=== PATIENT | male | born 1995 | race Caucasian/White ===

== ENCOUNTER 2017-07-27 10:41 | Emergency (ER) | payer SELFPAY ==
[2017-07-27 13:00] LABS: Anion Gap 11 mmol/L (10-20); BUN (Urea Nitrogen) 11 mg/dL (8.9-20.6); Calc. Creatinine Clearance 0 mL/min (70-130); Calcium 9.1 mg/dL (7.8-10.44); Carbon Dioxide 22 mmol/L (22-29); Chloride 108 mmol/L (98-107); Estimated GFR-MDRD Greater than 90; Glucose 93 mg/dL (70-105); Potassium 5.1 mmol/L (3.5-5.1); Sodium 136 mmol/L (136-145)
--- NOTE | 2017-07-27 13:50 | CT ---
CT ABDOMEN AND PELVIS WITH CONTRAST: Date: 07/27/17 Multiple axial tomograms obtained through the abdomen and pelvis with IV enhancement. INDICATION: Right lower quadrant pain. FINDINGS: Lung bases clear. Liver, spleen, and pancreas unremarkable. Adrenal glands and kidneys unremarkable. No hydronephrosis or urinary calculus identified. Small bowel loops appear normal. Appendix is identified and appears unremarkable. There is a large amount of stool seen in the right c olon and transverse colon. Left colon is mostly contracted. Aorta and retroperitoneum unremarkable. N o adenopathy apparent. IMPRESSION: No evidence of acute process. POS: [facility]
[2017-07-27] MEDS ORDERED: ISOVUE-370 76%-LOCM 1 ML ONE (14:54)
== END 2017-07-27 13:02 | disposition home or self-care (01) ==
LOC: ERS 10:41
DX: R10.31 Right lower quadrant pain (principal)
CPT/HCPCS: 36415; 74177; 80048

== ENCOUNTER 2018-06-22 17:48 | Inpatient (IN) | payer BC, SELFPAY ==
[2018-06-22 18:20] LABS: #Eosinphils 0.2 thou/uL (0.0-0.7); #Monocytes 0.5 thou/uL (0.11-0.59); #Neutrophils 2.1 thou/uL (1.40-6.50); %Basophils 0.5 % (0.0-1.0); %Eosinophils 4.5 % (0.0-10.0); %Lymphocytes 25.6 % (21.0-51.0); %Monocytes 13.1 % (0.0-10.0); %Neutrophils 56.4 % (42.0-75.0); Hemoglobin 16.9 g/dL (14.0-18.0); Mean Corpuscular HGB CONC 31.7 g/dL (32.0-36.0); Mean Platelet Volume 9.3 fL (7.4-10.4); Platelet Count 166 thou/uL (130-400); RBC Distribution Width 12.6 % (11.5-14.5); Red Blood Cell (RBC) Count 5.28 mill/uL (4.70-6.10); White Blood Cell (WBC) Count 3.8 thou/uL (4.8-10.8)
[2018-06-22 18:40] LABS: ALT (SGPT) 2428 U/L (8-55); AST (SGOT) 1701 U/L (5-34); Albumin 4.3 g/dL (3.5-5.0); Alkaline Phosphatase 227 U/L (40-150); Anion Gap 17 mmol/L (10-20); BUN (Urea Nitrogen) 7 mg/dL (8.9-20.6); Bilirubin, Total 16.8 mg/dL (0.2-1.2); Calc. Creatinine Clearance 0 mL/min (70-130); Carbon Dioxide 25 mmol/L (22-29); Chloride 102 mmol/L (98-107); Estimated GFR-MDRD 76; Globulin 2.8 g/dL (2.4-3.5); Glucose 151 mg/dL (70-105); Lipase 9 U/L (8-78); Potassium 4.5 mmol/L (3.5-5.1); Protein, Total 7.1 g/dL (6.0-8.3); Sodium 139 mmol/L (136-145)
[2018-06-22 18:48] LABS: INR-International Normal Ratio 1.2; PTT 29.7 SEC (22.9-36.1); Prothrombin Time 15.7 SEC (12.0-14.7)
[2018-06-22 19:00] LABS: HBCM Index 0.06 S/CO (0-0.79); Hep A IgM AB Non-Reactive (NonReactive); Hep A IgM S/CO 0.13 S/CO (0-0.79); Hep C IgG Ab Non-Reactive (NonReactive); Hep C Index 0.11 S/CO (0-0.79); Hepatitis B Core IgM Abs Non-Reactive (NonReactive)
--- NOTE | 2018-06-22 19:07 | ULT ---
ULTRASOUND ABDOMEN LIMITED: (RIGHT UPPER QUADRANT) DATE: 06/22/2018 HISTORY: 23-year-old male with right upper quadrant abdominal pain FINDINGS: Gallbladder:Diffuse mural thickening up to 7 mm. No gallstone or sludge identified. No pericholecysti c fluid. Common duct:4 mm. Liver:Echogenicity within normal limits Pancreas:Poorly visualized Right kidney:No hydronephrosis. IMPRESSION: Nonspecific finding of diffuse mural thickening of the gallbladder without abnormal luminal distentio n, and no evidence of cholelithiasis. Consider chronic cholecystitis. Acalculous cholecystitis is unlikely in an otherwise normal young patient. Consider nuclear medicine hepatobiliary scan on an claudia ctive basis.
[2018-06-22 19:37] LABS: Bilirubin Large (Negative); Blood, Urine Negative (Negative); Clarity CLOUDY (Clear); Glucose, Urine (Dipstick) Negative (Negative); Leukocyte Small (Negative); Nitrite Negative (Negative); Protein, Urine (Dipstick) Negative (Neg-Trace); Specific Gravity, Urine 1.016 (1.002-1.036); Urobilinogen 0.2 mg/dL (0.2-1.0); pH, Urine 6.5 (5.0-9.0)
[2018-06-22 19:39] LABS: Hyaline Casts/LPF 0-3 HYALINE CAST LPF (0-3 Hyaline); Pathc Cast-AUWi Flag 0.27 (0-2.49); Squamous Epithelial None Seen HPF (0-3)
[2018-06-22 19:49] LABS: Bacteria/HPF 1+ HPF (None Seen); RBC/HPF None Seen HPF (0-3)
[2018-06-22 19:50] LABS: WBC/HPF 0-3 HPF (0-3); Yeast-All Forms None Seen HPF (None Seen)
[2018-06-22 19:56] LABS: HBSAg Index 1.62 S/CO (0-0.99)
[2018-06-22 19:57] LABS: Hep B Surf Ag Reflx Confirmation S/CO (NonReactive)
[2018-06-22] MEDS ORDERED: Ondansetron PF 4 MG/2 ML Vial ONE (21:50)
[2018-06-22] MEDS ORDERED: Morphine 4 MG/ML VIAL ONE (21:50)
[2018-06-22 22:38] LABS: Acetaminophen Less than 6.0 mcg/mL (10.0-30.0); Alcohol Less than 10 mg/dL (Less than 10); Salicylate Less than 8.0 mg/dL (15.0-30.0)
[2018-06-22 23:36] LABS: HIV (1/2) Antibody/Antigen Non-Reactive (NonReactive); HIV 1/2 INDEX 0.12 S/CO (<1.00)
[2018-06-22 23:45] LABS: Amphetamine Not Detected (NotDetected); Barbiturates Screen Not Detected (NotDetected); Benzodiazepine Screen Not Detected (NotDetected); Cocaine Metabolite Screen Not Detected (NotDetected); Medtox Control Line Valid? VALID (VALID); Medtox Reader # READER 1; Methadone Not Detected (NotDetected); Methamphetamine Not Detected (NotDetected); Opiate Screen Not Detected (NotDetected); Oxycodone Screen Not Detected (NotDetected); Phencyclidine (PCP) Not Detected (NotDetected); THC/Cannabinoid Screen Not Detected (NotDetected); Tricyclic Screen Not Detected (NotDetected)
[2018-06-23 01:54] VITALS: BMI 26.7
[2018-06-23] MEDS: Sodium Chloride 0.9% 1,000 ML IV SCH ×2 (03:19→08:16)
[2018-06-23] MEDS ORDERED: Morphine 4 MG/ML VIAL SLOW IVP SCH (04:00)
[2018-06-23 05:27] LABS: #Eosinphils 0.1 thou/uL (0.0-0.7); #Monocytes 0.5 thou/uL (0.11-0.59); #Neutrophils 1.5 thou/uL (1.40-6.50); %Basophils 0.9 % (0.0-1.0); %Eosinophils 4.6 % (0.0-10.0); %Lymphocytes 32.4 % (21.0-51.0); %Monocytes 14.3 % (0.0-10.0); %Neutrophils 47.8 % (42.0-75.0); Hemoglobin 14.3 g/dL (14.0-18.0); Mean Corpuscular HGB CONC 31.9 g/dL (32.0-36.0); Mean Corpuscular Hemoglobin 31.9 pg (27.0-31.0); Mean Platelet Volume 9.6 fL (7.4-10.4); Platelet Count 141 thou/uL (130-400); RBC Distribution Width 12.7 % (11.5-14.5); Red Blood Cell (RBC) Count 4.49 mill/uL (4.70-6.10); White Blood Cell (WBC) Count 3.2 thou/uL (4.8-10.8)
[2018-06-23 05:46] LABS: ALT (SGPT) 1948 U/L (8-55); AST (SGOT) 1402 U/L (5-34); Albumin 3.5 g/dL (3.5-5.0); Alkaline Phosphatase 182 U/L (40-150); Anion Gap 11 mmol/L (10-20); BUN (Urea Nitrogen) 6 mg/dL (8.9-20.6); Bilirubin, Total 14.3 mg/dL (0.2-1.2); Calc. Creatinine Clearance 175 mL/min (70-130); Calcium 9.2 mg/dL (7.8-10.44); Carbon Dioxide 27 mmol/L (22-29); Chloride 103 mmol/L (98-107); Estimated GFR-MDRD Greater than 90; Globulin 2.3 g/dL (2.4-3.5); Glucose 142 mg/dL (70-105); Potassium 3.7 mmol/L (3.5-5.1); Protein, Total 5.8 g/dL (6.0-8.3); Sodium 137 mmol/L (136-145)
--- NOTE | 2018-06-23 06:26 | HP ---
PRIMARY CARE PHYSICIAN: The patient has no PCP. TIME OF EVALUATION: 10:45 p.m. CODE STATUS: Full code. CHIEF COMPLAINT: Abdominal pain. HISTORY OF PRESENT ILLNESS: This is a 23-year-old male patient with no significant past medical history, came to the hospital after having abdominal pain for the past week, associated with nausea. He was also noted to be jaundiced. The symptoms are mild to moderate. He also reported associated dark urine. He reported having one checkup for STDs on January after his partner was positive for chlamydia. He was tested for some HIV and STDs except for hepatitis. He denies any other risky relationships and no recent sexual relationships. REVIEW OF SYSTEMS: CONSTITUTIONAL: The patient has no fever, chills. He reported some generalized weakness. RESPIRATORY: No cough, sputum production, or shortness of breath. CARDIOVASCULAR: No chest pain or palpitation. GASTROINTESTINAL: The patient has abdominal tenderness and nausea. No diarrhea. ACADEMIC COORDINATOR: No dizziness, headache, or feeling lightheaded. GENITOURINARY: No burning on urination. The patient did report having dark urine. EXTREMITIES: No leg swelling. SKIN: The patient was jaundiced. All other systems were reviewed and negative except for the findings mentioned above. PAST MEDICAL HISTORY: Negative. PAST SURGICAL HISTORY: History of orthopedic surgery to right arm. PSYCHIATRIC HISTORY: No previous psych history. SOCIAL HISTORY: The patient denies any alcohol use, no drug use, no smoking history. Lives at home alone. FAMILY HISTORY: Reviewed and noncontributory for current presentation. ALLERGIES: NO KNOWN DRUG ALLERGIES. REPORTED MEDICATIONS: Omeprazole. PHYSICAL EXAMINATION: VITAL SIGNS: On presentation, blood pressure 116/73 with heart rate 97, respiratory rate was 16, temperature 98. Pain was 6/10. Oxygen saturation was 99% on room air. GENERAL APPEARANCE: The patient is alert and oriented, not in acute distress. HEENT: Eyes, normal conjunctivae. Moist oral mucosa. The patient is jaundiced. NECK: No JVD. RESPIRATORY: Bilateral air entry. No rales. No wheezes. Symmetric expansion. CARDIOVASCULAR: Normal rate, regular rhythm. No murmurs. No gallops. No edema. ABDOMEN: Soft, tender. MUSCULOSKELETAL: Baseline range of motion and strength. No tenderness. SKIN: Warm, intact. No pallor. No rash. No redness. The patient is jaundiced. Peripheral pulses are present. Capillary refill seems to be intact. NEUROLOGIC: No evidence of any new focal weakness. Baseline speech. Cranial nerves seems to be intact. PSYCHIATRIC: The patient is in good mood. No anxiety. Optimal judgment. IMAGING STUDIES: Abdominal ultrasound was reviewed. No specific findings of diffuse mural thickening of the gallbladder luminal distension and no evidence of cholelithiasis, consider chronic cholecystitis, acalculous cholecystitis is unlikely in an otherwise normal general patient, consider nuclear medicine hepatobiliary scan on an elective basis. LABORATORY DATA: Labs were reviewed. The patient has white count of 3.8, hemoglobin 16.9, MCV 101, platelet count 166. Coagulation; PT 15.7, INR 1.2, PTT 29.7. Chemistry; sodium 139, potassium 4.5, chloride 102, carbon dioxide 25, anion gap 17, BUN 7, creatinine 1.2, GFR 76, glucose 151, lactic acid 1.8, calcium 10, total bilirubin 16.8, AST 1700, ALT 2428, alkaline phosphatase 227. Ammonia 56. Serum total protein 7.1, albumin 4.3, globulin 2.8, albumin to globulin ratio is 1.5 with lipase 9. Urine showed trace of ketones, large bilirubin, small leukocyte esterase. No white count in the urine. Toxicology; the patient's toxicology was negative. HIV was negative. Serologies; the patient was positive for hep B antigen. ASSESSMENT AND PLAN: The patient will be placed in the hospital with following medical problems: 1. Acute viral hepatitis, likely due to hepatitis B. as per result, the patient is positive for hep B surface antigen, LFTs are significantly elevated, and so the bilirubin. GI has been consulted, Dr. Mallory will see the patient, we will follow recommendation. The patient INR within normal limits. We will monitor closely. If it continues to worse, different treatment might be considered. 2. Deep venous thrombosis prophylaxis. Job ID: [id number]
[2018-06-23] MEDS: Ondansetron ODT 4 MG TAB PO PRN (08:17)
--- NOTE | 2018-06-23 11:47 | PRG ---
DATE OF SERVICE: 06/23/2018 SUBJECTIVE: The patient is seen and examined at the bedside. He does not have much appetite. He lost some weight in the last couple of weeks since he got sick. OBJECTIVE: VITAL SIGNS: Blood pressure is 108/65, pulse is 77, temperature is 98.5, maximal temperature is 98.5, respiratory rate is 18, and O2 saturation is 97% on room air. HEENT: His head is atraumatic and normocephalic. Eyes are PERRLA. The sclerae are icteric. Conjunctiva is too red. Oral mucosa is moist. SKIN: Yellow. NECK: Supple. LUNGS: Clear. HEART: S1, S2 normal. No S3. No S4. No murmur. ABDOMEN: Soft, but tender in the epigastric area to palpation. I do not feel the edge of the liver. The bowel sounds are present. No organomegaly. EXTREMITIES: No clubbing, cyanosis, or edema. NEUROLOGICAL: He is alert and oriented x4. There is no any motor or sensory deficits present. Cranial nerves are intact. LABORATORY DATA: Labs showed a white count of 3.2, hemoglobin 14.3, hematocrit 44.9, platelet count is 141. Normal electrolytes. BUN of 6, creatinine 0.94, glucose 142, total bilirubin down to 14.3, AST 1402, ALT 1948, alkaline phosphatase 182, globulin 2.3. Hepatitis A IgM antibodies nonreactive, hepatitis B surface antigen confirmation high. Hepatitis B core IgM antibodies nonreactive and hepatitis C antibody nonreactive. HIV 1 and 2 antigen and antibodies nonreactive. IMPRESSION: Acute viral hepatitis B. we are waiting for GI consult to be done. He is getting IV fluids. His appetite is poor. His total bilirubin and transaminases are coming down. We will follow with him on daily basis and should he should be ready to go home in the next probably 24-48 hours. Job ID: [id number]
[2018-06-23] MEDS: Dextrose 5 % And 0.9 % NaCl 1,000 ML IV SCH (16:51)
[2018-06-23] MEDS: traMADol HCl 50 MG TAB PO PRN (22:41)
[2018-06-24] MEDS: Dextrose 5 % And 0.9 % NaCl 1,000 ML IV SCH ×3 (01:32→20:32)
[2018-06-24 07:25] LABS: Hep B Surface AG-Rflx Sendout Negative (Negative)
[2018-06-24 07:46] LABS: #Eosinphils 0.2 thou/uL (0.0-0.7); #Monocytes 0.4 thou/uL (0.11-0.59); #Neutrophils 1.2 thou/uL (1.40-6.50); %Basophils 0.5 % (0.0-1.0); %Eosinophils 5.7 % (0.0-10.0); %Monocytes 14.1 % (0.0-10.0); %Neutrophils 42.7 % (42.0-75.0); Hemoglobin 15.4 g/dL (14.0-18.0); Mean Corpuscular HGB CONC 31.8 g/dL (32.0-36.0); Mean Corpuscular Hemoglobin 31.4 pg (27.0-31.0); Mean Corpuscular Volume 98.9 fL (78.0-98.0); Mean Platelet Volume 9.4 fL (7.4-10.4); Platelet Count 161 thou/uL (130-400); RBC Distribution Width 12.7 % (11.5-14.5); Red Blood Cell (RBC) Count 4.91 mill/uL (4.70-6.10); White Blood Cell (WBC) Count 2.8 thou/uL (4.8-10.8)
[2018-06-24 07:50] LABS: INR-International Normal Ratio 1.3; Prothrombin Time 15.9 SEC (12.0-14.7)
[2018-06-24 08:07] LABS: ALT (SGPT) 2060 U/L (8-55); AST (SGOT) 1661 U/L (5-34); Albumin 3.7 g/dL (3.5-5.0); Alkaline Phosphatase 184 U/L (40-150); Anion Gap 13 mmol/L (10-20); BUN (Urea Nitrogen) 6 mg/dL (8.9-20.6); Bilirubin, Total 17.2 mg/dL (0.2-1.2); Calc. Creatinine Clearance 194 mL/min (70-130); Calcium 9.5 mg/dL (7.8-10.44); Carbon Dioxide 24 mmol/L (22-29); Chloride 106 mmol/L (98-107); Estimated GFR-MDRD Greater than 90; Globulin 2.5 g/dL (2.4-3.5); Glucose 96 mg/dL (70-105); Potassium 3.9 mmol/L (3.5-5.1); Protein, Total 6.2 g/dL (6.0-8.3); Sodium 139 mmol/L (136-145)
[2018-06-24] MEDS: Pantoprazole 40 MG VIAL IVP SCH (09:22)
[2018-06-24] MEDS: Ondansetron PF 4 MG/2 ML Vial IVP PRN ×2 (09:25→19:56)
[2018-06-24] MEDS: traMADol HCl 50 MG TAB PO PRN ×2 (09:25→17:19)
--- NOTE | 2018-06-24 09:53 | CON ---
DATE OF CONSULTATION: REASON FOR CONSULTATION: Acute hepatitis. HISTORY OF PRESENT ILLNESS: Mr. Bansal came to the emergency room last night, transfer from [facility], where he was going for illness, which started sometime the week before , which was June 06. He states that weekend he went to a [place] area for business work trip. It was research. 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 After that, he had some anorexia, nausea, and mainly pruritus. He gone to [facility] once shortly after that and got some anti-nausea medications and then went to a [facility], where he was given some PPI medications. He states about a week ago, maybe on the , he developed dark urine and just this weekend, his significant other noticed his eyes appeared dark. He was at [facility] recently and with increasing liver enzymes and nausea, vomiting, malaise, and poor p.o. intake, he was sent to the emergency room here at [facility]. In the past couple of days, he had worse right lower quadrant pain and [facility] actually sent him over, the emergency room doctor told me to rule out appendicitis. Here, he was found to have an INR 1.2, white count of 3.8, hemoglobin of 53.2, MCV of 101, platelet count 166. He had a bilirubin of 16, AST and ALT of 1701 and 2428 with alkaline phosphatase of 227. In ER, the patient was little bit fatigued, maybe confused and he got an ammonia, which was 56. His albumin is 4.3. His total protein was 7.1. His lipase was 9. For this pain, he had a CAT scan performed, which was unrevealing. With his elevated liver enzymes, he had salicylates, urine drug screen, acetaminophen, and alcohol level; all which were normal. Hepatitis A IgM was negative. Hepatitis B surface antigen was positive. Hepatitis B core IgM was nonreactive. Hepatitis C antibody was nonreactive. HIV was nonreactive. Talking with the patient, denies any sexual contacts. He denies any IV drug use. He does travel quite a bit. A couple of years ago, he was in [place]. He has been in [place] as well. As well as at the bedside, his significant other, mother notes he did have immunization for hepatitis B as an . The patient denies any use of taking any medications. He denies any supplement use. Denies excessive Tylenol use. Denies any alcohol use or drug use. His father does have some fatty liver. Presently, mainly he has upper abdominal discomfort, pain, and nausea. He threw up once today. REVIEW OF SYSTEMS: Negative for oral ulcers or lesions. Negative for rashes. Negative for fever or chills. Positive for weight loss about 30 pounds in the past 4 weeks. He got pruritus. No confusion. He has some little bit of photophobia and some neck stiffness. Denies muscle pains, myalgias, or joint pain. PAST MEDICAL HISTORY: Negative. PAST SURGICAL HISTORY: Right arm fracture. SOCIAL HISTORY: The patient does not use alcohol. Denies drug use. Does not smoke. ALLERGIES: NONE KNOWN. MEDICATIONS: Here Zofran and normal saline at 75 mL an hour. FAMILY HISTORY: Negative for liver disease except for followup fatty liver. Negative for any history of autoimmune disease. Mother at the bedside. Significant other increased somnolence or confusion. PHYSICAL EXAMINATION: VITAL SIGNS: He has been afebrile since admission. Temperature 98.3, pulse 62, and blood pressure 109/67. HEENT: He is icteric. Oropharynx without lesions. There is no ulcer or lesions. Conjunctivae and sclerae are clear. Pupils equal, round, reactive to light and accommodation. Extraocular muscles intact. There is no nystagmus. There is no nuchal rigidity. He can bend and flex his neck anterior and forward with no difficulty. He has no cervical or supraclavicular adenopathy. LUNGS: Clear. HEART: Regular rate and rhythm without clicks, rubs, or murmurs. ABDOMEN: Soft. There is no palpable hepatosplenomegaly. There are no abdominal bruits. There is no shifting dullness or fluid wave. EXTREMITIES: No clubbing, cyanosis, or edema. SKIN: Without stigmata of chronic liver disease such as depression, contractures, or spider angiomata. I see no overt signs of KF rings, although I do not have a good ophthalmoscope exam of his eyes at this point in time. NEUROLOGIC: Shows no asterixis. LABORATORY STUDIES: As per the HPI. CAT scan of the abdomen and pelvis showed no evidence of acute process. I reviewed the films. Ultrasound, nonspecific mural thickened gallbladder without distention or gallstones. ASSESSMENT: Acute hepatitis, presumptively hepatitis B with a surface antibody positive. It is odd that he has had contracted this as he had immunization as an , his mother states. It might represent this is an acute infection; however, he was in [place] a year or two ago for work. He has been to [place] as well, two other places where he could contract hep B. He has negative HIV. At this time, he shows no signs of fulminant failure, but is pretty ill with malaise, poor p.o. intake. There has been no confusion or coagulopathy at this time. RECOMMENDATIONS: 1. We are going to give him a little bit of low-dose Ultram for some pain control. We will change to D5 normal saline. He can remain on a diet as tolerated, probably first liquid. 2. Need to be monitored in the hospital for few days to see improvement liver enzymes. We need to make sure that he does not develop any lymphoma or liver failure, drop in liver enzymes, but a rising INR would indicate rapid necrosis and necessitate transfer to a tertiary care facility with liver transplant is available, possibly [place] or [place]. We will go and also check some other viral serologies and autoimmune markers in light of his history of prior hep B immunization. Disease such as Roberto's and hemochromatosis are less likely based on liver function this pattern to the fact that hemochromatosis is not an acute illness, but we do need to rule out autoimmune hepatitis and CMV, EBV. We will also check a hepatitis delta if the hepatitis B DNA is positive. We will follow along with you. Job ID: [id number]
--- NOTE | 2018-06-24 13:52 | PRG ---
DATE OF SERVICE: 06/24/2018 SUBJECTIVE: The patient is seen and examined at the bedside. He is basically feeling the same. He is able to eat some of his food. He had bowel movement, which was very dark, otherwise was unremarkable. OBJECTIVE: VITAL SIGNS: Blood pressure is 119/74, pulse is 56, temperature is 98.5, respiratory rate is 20, and O2 saturation is 94% on room air. HEENT: His head is atraumatic and normocephalic. His sclerae are icteric. Pupils are responding to light properly. His conjunctivae are red. NECK: Supple. LUNGS: Clear. HEART: S1, S2 normal. ABDOMEN: Soft. Mildly tender in the epigastric area. No guarding. No masses. EXTREMITIES: No clubbing, cyanosis, or edema. NEUROLOGICAL: He is alert and oriented x4. There is no any motor or sensory deficit present. Cranial nerves are intact. LABORATORY DATA: Labs showed white count of 2.8, hemoglobin of 15.4, hematocrit of 48.6, platelet count is 161,000. INR is 1.3, PT is 15.9. Normal electrolytes. BUN is 6, creatinine is 0.85. His total bilirubin is up to 17.2, AST 1661, ALT 2060, and alkaline phosphatase 184. The rest of chemistry is within normal limits. IMPRESSION: Acute hepatitis. The workup is in progress. His AST, ALT, and alkaline phosphatase are somewhat worse today. Clinically, he seems to be doing the same. There is no confusion. There is not much pain. Continue IV fluids. Continue PPI and small dose of tramadol. The liver is pending and the GI is following the case. Job ID: [id number]
--- NOTE | 2018-06-24 13:58 | PRG ---
DATE OF SERVICE: SUBJECTIVE: Mr. Bansal feels about the same. Since he took the Ultram, maybe a little bit better. No nausea or vomiting. He is tolerating liquids. OBJECTIVE: VITAL SIGNS: Temperature 98.5, pulse 56, and blood pressure 119/74. HEENT: He is icteric. LUNGS: Clear. HEART: Regular rate and rhythm without clicks, rubs, or murmurs. ABDOMEN: No shifting, dullness or fluid waves. No palpable hepatosplenomegaly. EXTREMITIES: No clubbing, cyanosis or edema. LABORATORY DATA: White count 3.8, hemoglobin 15.4, platelet count 161, and MCV 98. INR is 1.3. Chemistries; bilirubin 17.2, AST and ALT are 1661 and 2060, alk phos is 184, albumin is 3.7, total protein is 6.2. Serology; hepatitis B surface antigen confirmative test is negative. Total IgG is normal at 1017 and IgM 45. Remainder of serology workup is pending. ASSESSMENT: Acute hepatitis. ALT slightly higher than AST. he had hepatitis B surface antigen positive that this is acute hepatitis B, but the confirmatory test was negative. This along with the fact he had immunization as a child makes the acute hepatitis B much less likely. There is no globulin gap or elevated IgG to indicate autoimmune hepatitis and serologic markers are pending for that. Differential diagnosis would include other viral hepatitis, toxic exposures (Tylenol was negative). Metabolic disorders, Roberto's seems unlikely in light of the fact his alk phos is so high, which is typically not seen with that. RECOMMENDATIONS: I would get a Doppler study of this patient's liver to make sure there is not a vascular issue as mother's brother has history of blood clots in lungs and legs. I would also involve Infectious Disease in this patient's case and ask Ophthalmology to look at him for the presence of KF rings. Job ID: [id number]
[2018-06-25] MEDS: Ondansetron PF 4 MG/2 ML Vial IVP PRN ×3 (04:16→23:18)
[2018-06-25] MEDS: traMADol HCl 50 MG TAB PO PRN ×3 (04:20→20:16)
[2018-06-25 05:13] LABS: INR-International Normal Ratio 1.3; PTT 31.8 SEC (22.9-36.1); Prothrombin Time 16.4 SEC (12.0-14.7)
[2018-06-25 05:16] LABS: #Eosinphils 0.2 thou/uL (0.0-0.7); #Lymphocytes 0.9 thou/uL (1.20-3.40); #Monocytes 0.4 thou/uL (0.11-0.59); #Neutrophils 1.3 thou/uL (1.40-6.50); %Basophils 0.9 % (0.0-1.0); %Eosinophils 6.4 % (0.0-10.0); %Lymphocytes 32.4 % (21.0-51.0); %Monocytes 14.5 % (0.0-10.0); %Neutrophils 45.7 % (42.0-75.0); Hemoglobin 15.3 g/dL (14.0-18.0); Mean Corpuscular HGB CONC 30.8 g/dL (32.0-36.0); Mean Corpuscular Hemoglobin 31.2 pg (27.0-31.0); Mean Platelet Volume 9.7 fL (7.4-10.4); Platelet Count 162 thou/uL (130-400); Red Blood Cell (RBC) Count 4.91 mill/uL (4.70-6.10); White Blood Cell (WBC) Count 2.8 thou/uL (4.8-10.8)
[2018-06-25 05:26] LABS: ALT (SGPT) 2027 U/L (8-55); AST (SGOT) 1681 U/L (5-34); Albumin 3.6 g/dL (3.5-5.0); Alkaline Phosphatase 177 U/L (40-150); Anion Gap 11 mmol/L (10-20); BUN (Urea Nitrogen) 5 mg/dL (8.9-20.6); Bilirubin, Total 18.3 mg/dL (0.2-1.2); Calc. Creatinine Clearance 162 mL/min (70-130); Calcium 9.2 mg/dL (7.8-10.44); Carbon Dioxide 28 mmol/L (22-29); Chloride 103 mmol/L (98-107); Estimated GFR-MDRD Greater than 90; Globulin 2.5 g/dL (2.4-3.5); Glucose 82 mg/dL (70-105); Potassium 4.2 mmol/L (3.5-5.1); Protein, Total 6.1 g/dL (6.0-8.3); Sodium 138 mmol/L (136-145)
[2018-06-25] MEDS: Dextrose 5 % And 0.9 % NaCl 1,000 ML IV SCH ×2 (06:38→16:23)
--- NOTE | 2018-06-25 07:43 | ULT ---
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 FINDINGS: Ruvalcaba scale, color Doppler, and spectral Doppler images were obtained of the hepatic vasculature. The spleen is enlarged measuring 17.38 cm. There is appropriate hepatopetal flow within the splenic vein and appropriate flow within the splenic artery. There is appropriate hepatopetal flow within th e main portal vein and hepatic arteries. Appropriate flow is seen within the hepatic veins. There i s a suspected small stone within the decompressed gallbladder near the neck. The household appliances service technician reports a positive sonographic Glass's sign. The common bile duct was not interrogated. IMPRESSION: 1. Appropriate hepatopetal flow. 2. Small stone is seen within the gallbladder neck; however, the gallbladder is decompressed. Techn ician reports a positive sonographic Glass's sign and mild some mild gallbladder wall thickening oscar suring up to 6.2 mm, but no pericholecystic fluid is evident. POS: [facility]
[2018-06-25] MEDS: Pantoprazole 40 MG VIAL IVP SCH (09:53)
[2018-06-25] MEDS: Ondansetron ODT 4 MG TAB PO PRN (10:57)
--- NOTE | 2018-06-25 13:55 | PRG ---
DATE OF SERVICE: 06/25/2018 SUBJECTIVE: The patient is seen and examined at the bedside. The patient's mother was present in the room during my visit. He has some abdominal discomfort. No nausea. No vomiting. No diarrhea. He ate some food yesterday, approximately 50% of what he was given. OBJECTIVE: VITAL SIGNS: Blood pressure is 124/76, pulse is 65, temperature is 98.1, respiratory rate is 16, and O2 saturation is 96% on room air. HEENT: He is icteric. His skin and sclerae are icteric. Pupils are responding to light properly. His conjunctivae are pinkish. Oral mucosa is moist. NECK: Supple. LUNGS: Clear. HEART: S1 and S2 are normal. ABDOMEN: Soft. Somewhat tender on deeper palpation in the upper parts of the abdomen, in epigastrium. Bowel sounds are present. No organomegaly. EXTREMITIES: No clubbing, cyanosis, or edema. NEUROLOGIC: He is alert and oriented x4. There are no any motor or sensory deficits present. His cranial nerves are intact. LABORATORY DATA: Labs showed white count of 2.8, hemoglobin of 15.3, hematocrit 49.6, platelet count is 162,000. INR is 1.3, PTT is 31.8, and PT is 16.4. Normal electrolytes. BUN of 5, creatinine 1.02, total bilirubin is up to 18.3, AST is 1681, ALT 2027, and alkaline phosphatase is 177. The rest of chemistry is within normal limits. Ultrasound of the abdomen showed a small stone within the gallbladder neck, but the gallbladder is decompressed. Mild gallbladder wall thickening measuring up to 6.2 mm, but no pericholecystic fluid is evident hepatopetal flow on this ultrasound. IMPRESSION: Acute hepatitis, still etiology is uncertain. His total bilirubin went up, but the rest of liver function test seems to be getting stabilized, and I hope this is going to be a turning point and we will start seeing some improvement in those levels. The patient is doing well clinically. He has some abdominal discomfort, but his mental condition is fine. He does not show any significant distress. ID consult is pending and Ophthalmology consult is pending. Continue to follow up on his liver function tests. We will continue IV fluids and continue PPI, with tramadol for pain management on his abdominal discomfort. Job ID: [id number]
[2018-06-25 14:45] LABS: Ref Lab Test Ordered C BURNETTI IGG/IGM; Reference Lab Name LABCORP
[2018-06-25 14:55] LABS: Ref Lab Test Ordered HEV RNA QUANT
[2018-06-25 15:07] LABS: Syphilis Antibody Nonreactive (Nonreactive); Syphilis Antibody Index 0.03 S/CO (<1.00 Non-Reactive)
--- NOTE | 2018-06-25 16:13 | PRG ---
DATE OF SERVICE: 06/25/2018 SUBJECTIVE: Mr. Bansal's family notes he ate pretty good dinner last night, but today he ate and he got sick. Throughout, he is mainly in bed without moving around a lot. He is not getting up and around. PRESENT MEDICATIONS: 1. Zofran. 2. Protonix. 3. Ultram. OBJECTIVE: VITAL SIGNS: Temperature is 98, pulse 65, and blood pressure 124/76. LUNGS: Clear. HEART: Regular rate and rhythm. ABDOMEN: Mildly tender in the epigastrium. No rebound or guarding. There is no palpable hepatosplenomegaly. LABORATORY DATA: White count 2.8, hemoglobin 15.3, and platelet count is 162. INR is 1.3. Chemistries are for slightly increasing bilirubin to 18.3 with AST and ALT about the same at 1681 and 2026, alkaline phosphatase is 177. No new labs have been received. IMAGING DATA: Imaging with Doppler of the liver this morning showed no signs of portal venous or hepatic venous thrombosis. He has some gallstones with his decompressed gallbladder. ASSESSMENT: Acute hepatitis, toxic versus metabolic versus viral or infectious. Dr. Castillo is waiting no signs of pulmonary failure, but he is not reliable with hold down of liquids increasing bilirubin and persistently elevated AST and ALT without signs of improvement. RECOMMENDATIONS: 1. Continue hospitalization. Await workup. Monitor for signs of fulminant liver failure. Continue to help with liquids and hydration. 2. Start Lovenox for DVT prophylaxis. Job ID: [id number]
[2018-06-25 17:05] LABS: ANA Symphony (Qualitative) Negative (Negative); ANA Symphony (Quantitative) 0.1 Ratio (< 0.7 Negative); EliA Vaculitis New Method **** NEW METHOD ****; Mitochondrial Ab 1.2 U/mL (<4 Negative); dsDNA IgG Antibody Less than 0.5 IU/mL (<10 Negative)
[2018-06-25] MEDS: Enoxaparin Sodium 30 MG/0.3 ML SYRINGE SC SCH (20:16)
--- NOTE | 2018-06-25 23:15 | CON ---
DATE OF CONSULTATION: REASON FOR VISIT: Acute hepatitis. HISTORY OF PRESENT ILLNESS: Mr. Bansal is a 23-year-old student at [employer], who was otherwise healthy until he developed abdominal pain for the past week before admission, associated with nausea and jaundice. This led to admission. He did have a history of a check for STDs, which was negative after partner was diagnosed with Chlamydia. 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 He has travelled to [place] and to [place], but that was 2 and 3 years ago. He was in the [facility] and other areas. He does not take any routine medications except for the Prilosec that was prescribed before when he developed the current symptoms before the diagnosis of hepatitis. Currently, he is still feeling unwell, is nauseated. Some headaches. No visual symptoms. No sore throat, odynophagia, or dysphagia. No dental pain. No back pain. No dyspnea or chest pain. No cough. No abdominal pain or diarrhea. No genitourinary symptoms. No joint symptoms. No skin disorder. PAST MEDICAL HISTORY: Otherwise negative. PAST SURGICAL HISTORY: He did have a right arm orthopedic surgery in the past. SOCIAL HISTORY: He is a student. Does not drink alcoholic beverages. No drug use. No smoking. He is heterosexual and has a girlfriend. FAMILY HISTORY: Noncontributory. ALLERGIES: NONE. CURRENT MEDICATIONS: 1. Lovenox. 2. Zofran. 3. Protonix. 4. Ultram. PHYSICAL EXAMINATION: VITAL SIGNS: T-max 98.5, blood pressure 124/76, pulse 65, respirations 16, and O2 saturation 96%. SKIN: No spider angiomata. There is a fine papular rash in the anterior chest. No lymphadenopathy. HEENT: Bilateral scleral icterus. Nasal passages patent. Ear exam normal. Oral cavity normal. Teeth in very good shape. NECK: Supple. No jugular venous distention or carotid bruits. LUNGS: Clear to auscultation and percussion. HEART: S1 and S2. Regular rate. No S3 or S4. ABDOMEN : Soft with mild tenderness in the right upper quadrant. Liver span is about 12 cm. No splenomegaly. No bladder distention. GENITOURINARY: No genital abnormalities. MUSCULOSKELETAL: No joint inflammatory activity noted. Moves all extremities equally. NEUROLOGIC: He is awake and oriented. Follows commands. No asterixis. LABORATORY DATA: White cell count is 3.8 and now 2.8, hemoglobin 16.4, hematocrit 53 and now 49, platelets were 166 and now 162. Neutrophil percentage 56 and 45. INR was 1.2 and now 1.3. Sodium 138 and creatinine 1.02. Bilirubin was 16, now is 18. AST 1700, now is 1600; ALT 2400, and now 2000; alkaline phosphatase was 227, now 177. Albumin 4.3. Urinalysis with 0 to 3 wbc's. Toxicology was negative. There are a number of serologies pending. The hepatitis B surface antigen initial test was positive, but the repeat test was negative. Syphilis was nonreactive. HIV nonreactive. Hepatitis C nonreactive. ASSESSMENT AND PLAN: Acute hepatitis in a young man, otherwise healthy. The differential diagnosis includes viral hepatitis such as the usual hepatitis viruses, that is less likely, although some nucleic acid amplification assays are pending; cytomegalovirus, Lynette Lundberg, herpes simplex ,varicella zoster are possible as well, but less likely. There is no evidence of toxin exposure. Drug-induced hepatitis is unlikely and autoimmune hepatitis as mentioned by Dr. Mallory is less likely, although not completely ruled out. Acute autoimmune hepatitis can develop in young men and women, but that is again in the absence of hypergammaglobulinemia that appears to be less likely. Bacterial acute hepatitis such as leptospira hepatitis, Coxiella burnetii will be checked. Rickettsia and treponema pallidum are less likely. Granulomatous hepatitis due to sarcoid Mycobacterium tuberculosis is not ruled out, but less likely. Hereditary forms of metabolic liver disease including Robetro's, hemochromatosis and alpha-1 antitrypsin deficiency will be evaluated too as well. Hepatitis E virus has not yet been checked and we will go ahead and submit antibody test for that virus. Recently, there has been evidence that the prevalence of hepatitis E virus infection is higher than previously thought in developed countries. So I think it is worthwhile to test for it. Job ID: [id number]
[2018-06-26 05:26] LABS: PTT 34.9 SEC (22.9-36.1)
[2018-06-26 05:28] LABS: INR-International Normal Ratio 1.4; Prothrombin Time 16.9 SEC (12.0-14.7)
[2018-06-26 05:40] LABS: ALT (SGPT) 1813 U/L (8-55); AST (SGOT) 1518 U/L (5-34); Albumin 3.3 g/dL (3.5-5.0); Alkaline Phosphatase 160 U/L (40-150); Anion Gap 11 mmol/L (10-20); BUN (Urea Nitrogen) 6 mg/dL (8.9-20.6); Bilirubin, Total 19.4 mg/dL (0.2-1.2); Calc. Creatinine Clearance 156 mL/min (70-130); Calcium 9.1 mg/dL (7.8-10.44); Carbon Dioxide 30 mmol/L (22-29); Chloride 102 mmol/L (98-107); Estimated GFR-MDRD 88; Globulin 2.3 g/dL (2.4-3.5); Glucose 93 mg/dL (70-105); Potassium 3.6 mmol/L (3.5-5.1); Protein, Total 5.6 g/dL (6.0-8.3); Sodium 139 mmol/L (136-145)
[2018-06-26] MEDS: Dextrose 5 % And 0.9 % NaCl 1,000 ML IV SCH ×3 (05:46→20:34)
[2018-06-26] MEDS: Ondansetron ODT 4 MG TAB PO PRN ×2 (07:54→14:01)
[2018-06-26] MEDS: traMADol HCl 50 MG TAB PO PRN ×3 (07:54→20:28)
[2018-06-26] MEDS: Pantoprazole 40 MG VIAL IVP SCH (08:00)
--- NOTE | 2018-06-26 09:44 | PRG ---
DATE OF SERVICE: 06/26/2018 SUBJECTIVE: The patient is seen and examined at the bedside. The patient's mother and father are both in the room during my visit. They have questions, I tried to answer them satisfactorily. He feels basically the same. He had some abdominal pain but took pain medicine tramadol and it is better. He eats some food. He is getting IV fluids. OBJECTIVE: VITAL SIGNS: Blood pressure is 103/61, pulse is 61, temperature is 97.9, respiratory rate is 16, O2 saturation is 96% on room air. HEENT: His head is atraumatic and normocephalic. Skin is jaundiced. Sclerae are jaundiced. Pupils responding to light properly. Oral mucosa is moist. NECK: Supple. LUNGS: Clear. HEART: S1, S2 normal. No S3. No S4. ABDOMEN: Soft, mildly tender in the epigastric area. No guarding. No masses. EXTREMITIES: No clubbing, cyanosis, or edema. NEUROLOGICAL: He is alert and oriented x4. There is no any motor or sensory deficits present. Cranial nerves are intact. LABORATORY DATA: PTT 16.9, INR 1.4, APTT 34.9. Sodium 139, potassium 3.6, chloride 102, CO2 is 30, BUN 6, creatinine 1.06, total bilirubin 19.4, AST 1518, ALT 1813, alkaline phosphatase 160, albumin 3.3, globulin 2.3. Syphilis IgG and IgM antibodies nonreactive. IMPRESSION: Acute hepatitis, seen by Dr. Castillo yesterday for Infectious Disease evaluation. There is a lot of new additional testing to be done looking for the cause of his acute liver problem. Continue his IV fluids and we will check his labs this morning. He seems to be doing well clinically and we got to a turning point when the number starts going down. In the meantime, we are going to look for the answer. Job ID: [id number]
[2018-06-26 11:10] LABS: Hep C PCR-Quant HCV Not Detected IU/mL (.)
--- NOTE | 2018-06-26 17:03 | PRG ---
DATE OF SERVICE: 06/26/2018 SUBJECTIVE: The patient states that he is feeling better today with no further episodes of nausea or vomiting. He has not been fairly active today thus far, though. Currently, he denies any nausea, vomiting, fevers, chills, hematemesis, melena, hematochezia, ascites, lower extremity edema, or encephalopathy. However, he does endorse increased itching all over his body that he currently cannot control. OBJECTIVE: VITAL SIGNS: Temperature 98, pulse 56, blood pressure 112/63, respiratory rate 16, saturating 95% on room air. GENERAL: The patient is lying in bed, in no acute distress. Alert and oriented x4. CARDIOVASCULAR: Regular rate and rhythm. RESPIRATORY: Clear to auscultation bilaterally. ABDOMEN: Normoactive bowel sounds. Soft, nondistended, mild tenderness to palpation in the midepigastric region. LABORATORY DATA: INR 1.4. Chemistry with a sodium of 139, potassium 3.6, chloride 102, CO2 30, BUN 6, creatinine 1.06, glucose 93. AST 1518, ALT 1813, alkaline phosphatase 160, total bilirubin 19.4. IMAGING DATA: No current GI imaging is available for review. ASSESSMENT AND PLAN: The patient is a 23-year-old male with no significant past medical history, presenting with acute hepatitis. Acute hepatitis. The patient is presenting with acute onset of jaundice and labs consistent with acute hepatitis with unknown etiology at this time. Current differential could include toxic versus metabolic versus viral/infectious etiology; however, workup thus far has been negative for salicylate or acetaminophen toxicity, autoimmune hepatitis, lupus hepatitis, primary biliary cholangitis, syphilitic hepatitis, acute hepatitis A or C. HIV negative with labs pending for CMV, EBV, hepatitis E, and viral load for hepatitis B given that his hepatitis B surface antigen was positive on one occasion, now currently with increased systemic itching most likely pruritus of jaundice and could benefit from bile acid sequestrant. RECOMMENDATIONS: 1. Would continue to monitor LFTs and INR daily as well as serial neurological exams. 2. Follow up on labs already ordered. 3. We will place the patient on cholestyramine 4 g b.i.d. for systemic itching associated with jaundice. We will continue to follow. Please call with any questions. Job ID: [id number]
[2018-06-26 17:08] LABS: HBV as IU/mL HBV DNA not detected IU/mL (.)
[2018-06-26] MEDS: Cholestyramine/Aspartame 4 gm Packet PO SCH (20:27)
[2018-06-26] MEDS: Ondansetron PF 4 MG/2 ML Vial IVP PRN (20:29)
[2018-06-26] MEDS: Enoxaparin Sodium 30 MG/0.3 ML SYRINGE SC SCH (20:30)
[2018-06-26 23:06] LABS: CMV DNA-PCR Test Negative (Negative)
--- NOTE | 2018-06-26 23:33 | EKG ---
Test Reason : Blood Pressure : / mmHG Vent. Rate : 060 BPM Atrial Rate : 060 BPM P-R Int : 142 ms QRS Dur : 096 ms QT Int : 420 ms P-R-T Axes : 035 -01 005 degrees QTc Int : 420 ms Sinus rhythm with Fusion complexes Incomplete right bundle branch block Borderline ECG Confirmed by GRETA PINEDA ([id number]), editor greeting card LEONARDO GROVER ([id number]) on 06/26/2018 11:33:16 PM Referred By: EDWIN Confirmed By:GRETA PINEDA
[2018-06-27 04:30] LABS: #Eosinphils 0.2 thou/uL (0.0-0.7); #Monocytes 0.4 thou/uL (0.11-0.59); #Neutrophils 1.3 thou/uL (1.40-6.50); %Basophils 1.7 % (0.0-1.0); %Eosinophils 6.2 % (0.0-10.0); %Lymphocytes 34.4 % (21.0-51.0); %Monocytes 13.5 % (0.0-10.0); %Neutrophils 44.3 % (42.0-75.0); Hemoglobin 14.6 g/dL (14.0-18.0); Mean Corpuscular HGB CONC 32.4 g/dL (32.0-36.0); Mean Corpuscular Hemoglobin 32.2 pg (27.0-31.0); Mean Corpuscular Volume 99.4 fL (78.0-98.0); Mean Platelet Volume 9.5 fL (7.4-10.4); Platelet Count 147 thou/uL (130-400); Red Blood Cell (RBC) Count 4.53 mill/uL (4.70-6.10); White Blood Cell (WBC) Count 2.8 thou/uL (4.8-10.8)
[2018-06-27 04:51] LABS: ALT (SGPT) 1916 U/L (8-55); AST (SGOT) 1803 U/L (5-34); Albumin 3.4 g/dL (3.5-5.0); Alkaline Phosphatase 147 U/L (40-150); Bilirubin, Total 22.3 mg/dL (0.2-1.2); Protein, Total 5.6 g/dL (6.0-8.3)
[2018-06-27] MEDS: Dextrose 5 % And 0.9 % NaCl 1,000 ML IV SCH ×2 (05:02→16:50)
[2018-06-27] MEDS: Ondansetron PF 4 MG/2 ML Vial IVP PRN ×3 (05:03→16:50)
[2018-06-27] MEDS: traMADol HCl 50 MG TAB PO PRN ×3 (05:03→16:48)
[2018-06-27 05:41] LABS: Bilirubin, Direct 16.3 mg/dL (0.1-0.3)
[2018-06-27] MEDS: Pantoprazole 40 MG VIAL IVP SCH (08:18)
[2018-06-27 10:08] LABS: HSV 2 - DNA Negative (Negative)
[2018-06-27] MEDS: Cholestyramine/Aspartame 4 gm Packet PO SCH ×3 (10:08→21:34)
[2018-06-27 11:35] LABS: INR-International Normal Ratio 1.3; Prothrombin Time 16.4 SEC (12.0-14.7)
--- NOTE | 2018-06-27 15:12 | PRG ---
DATE OF SERVICE: 06/27/2018 SUBJECTIVE: The patient states that he is not feeling as well as he did yesterday with increased nausea, but no actual emesis. He also states that he continues to have systemic itching despite administration of cholestyramine (he has received 2 doses thus far). He also adds that he has been having an increase in the amount of hiccups, but otherwise denies any vomiting, fevers, chills, hematemesis, melena, hematochezia, ascites, lower extremity edema, or encephalopathy. OBJECTIVE: VITAL SIGNS: Temperature 98.2, pulse 56, blood pressure 107/59, respiratory rate 16, saturating 94% on room air. GENERAL: The patient was lying in bed, in no acute distress. Alert and oriented x4. CARDIOVASCULAR: Regular rate and rhythm. RESPIRATORY: Clear to auscultation bilaterally. ABDOMEN: Normoactive bowel sounds. Soft, nondistended, mild tenderness to palpation in the midepigastric region. EXTREMITIES: No cyanosis, clubbing, or edema. LABORATORY DATA: CBC with a white blood cell count of 2.8, hemoglobin 14.6, hematocrit 45, and platelets 147. AST of 1803, ALT 1916, alkaline phosphatase 147, and total bilirubin 22.3. INR 1.3. Albumin 3.4. Hepatitis B viral load negative. Hepatitis C viral load negative. Cytomegalovirus presence negative with Lynette-Lundberg virus serology still pending. IMAGING DATA: Right upper quadrant ultrasound obtained on 06/25/2018, showed appropriate hepatopetal flow within the splenic vein, portal vein, and hepatic arteries. There was no evidence of portal or hepatic vein thrombosis. ASSESSMENT AND PLAN: The patient is a 23-year-old male with no significant past medical history, presenting with acute hepatitis. Acute hepatitis: The patient is presenting with acute onset of jaundice and systemic itching with labs consistent with acute hepatitis in a primarily hepatocellular pattern with unknown etiology at this time. Workup thus far has been negative for salicylate or acetaminophen toxicity, autoimmune hepatitis, lupus hepatitis, primary biliary cholangitis, syphilitic hepatitis, acute hepatitis A, B, or C, HIV, CMV, and Roberto disease. Serologies for hepatitis E are still pending at this time and currently not responding to the b.i.d. dosing of cholestyramine, so may increase for systemic itching. RECOMMENDATIONS: 1. We would continue to monitor LFTs and INR daily as well as serial neurological exams. 2. We would follow up on serologies already ordered. 3. We would increase the patient on cholestyramine 4 g to q.i.d. dosing for pruritus associated with cholestasis. 4. If the patient's enzymes do continue to rise or if he has significantly increased in his total bilirubin or INR, I would consider transferring to a tertiary care center for further evaluation. We will continue to follow. Please call with any questions. Job ID: [id number]
--- NOTE | 2018-06-27 15:16 | PRG ---
DATE OF SERVICE: 06/27/2018 SUBJECTIVE: The patient is seen and examined at the bedside. His mother and some other family members are present during my visit. He has more abdominal discomfort today. He has some nausea. He took Ultram and Zofran and it helped, but not much like it used to. He did not vomit. He did not have any bowel movement for the last 2 days. His appetite is quite poor. OBJECTIVE: VITAL SIGNS: Blood pressure is 107/59, pulse is 56, temperature is 98.2, respiratory rate is 16, O2 saturation is 94% on room air. HEENT: His oral mucosa is moist. NECK: Supple. LUNGS: Clear. HEART: S1 and S2 normal. ABDOMEN: Soft. Somewhat tender in the epigastric area. No guarding. No masses. I do not really feel edge of the liver. Bowel sounds are present. EXTREMITIES: No clubbing, cyanosis, or edema. NEUROLOGIC: He is alert and oriented x4. There are no any motor or sensory deficits. Cranial nerves are intact. LABORATORY DATA: Labs showed white count of 2.8, hemoglobin of 14.6, hematocrit 45.0, MCV 99.4, platelet count is 147,000. His INR is 1.3, PT 16.4. Total bilirubin is 22.3, direct bilirubin 16.3, AST 1803, ALT 1960, alkaline phosphatase 147, serum total protein 5.6, albumin of 3.4. IMPRESSION: Acute hepatitis of unclear etiology. So far workup is negative. Multiple tests are still pending. We are going to treat him symptomatically for the pain and nausea. We are going to follow liver function tests closely and also we will have neurological examination done. INR is today improved at 1.3 comparing to what it was yesterday 1.4. His total bilirubin is higher than what it was yesterday, and AST and ALT showed mixed picture. Actually, alkaline phosphatase is back to normal range. Started on cholestyramine yesterday and IV fluids and pain management. Job ID: [id number]
[2018-06-27] MEDS: Enoxaparin Sodium 30 MG/0.3 ML SYRINGE SC SCH (21:34)
[2018-06-28] MEDS: traMADol HCl 50 MG TAB PO PRN ×2 (00:17→06:26)
[2018-06-28] MEDS: Ondansetron PF 4 MG/2 ML Vial IVP PRN ×2 (00:18→06:26)
[2018-06-28 05:44] LABS: Lymphocytes 15 % (21-51); MDiff Complete? YES; Mean Corpuscular HGB CONC 32.5 g/dL (32.0-36.0); Mean Corpuscular Hemoglobin 32.4 pg (27.0-31.0); Mean Corpuscular Volume 99.7 fL (78.0-98.0); Mean Platelet Volume 9.8 fL (7.4-10.4); Monocytes 3 % (0-10); Neutrophil 82 % (42-75); Platelet Count 159 thou/uL (130-400); Platelet Morphology Comment Appears Adequate; RBC Distribution Width 13.1 % (11.5-14.5); RBC Morphology Normal; Red Blood Cell (RBC) Count 4.62 mill/uL (4.70-6.10); White Blood Cell (WBC) Count 3.5 thou/uL (4.8-10.8)
[2018-06-28] MEDS: Dextrose 5 % And 0.9 % NaCl 1,000 ML IV SCH ×2 (06:26→13:16)
[2018-06-28 08:30] LABS: INR-International Normal Ratio 1.3; PTT 36.6 SEC (22.9-36.1); Prothrombin Time 16.6 SEC (12.0-14.7)
[2018-06-28 08:49] LABS: ALT (SGPT) 1912 U/L (8-55); AST (SGOT) 1972 U/L (5-34); Albumin 3.4 g/dL (3.5-5.0); Alkaline Phosphatase 153 U/L (40-150); Protein, Total 5.9 g/dL (6.0-8.3)
[2018-06-28] MEDS: Pantoprazole 40 MG VIAL IVP SCH (08:54)
[2018-06-28] MEDS: Cholestyramine/Aspartame 4 gm Packet PO SCH ×3 (10:31→18:57)
[2018-06-28 11:47] LABS: Ref Lab Test Ordered KARIUS TEST; Reference Lab Name KARIUS
--- NOTE | 2018-06-28 14:39 | PRG ---
DATE OF SERVICE: 06/28/2018 SUBJECTIVE: Mr. Bansal has remained stable over the weekend. He has had nausea, anorexia, and pruritus. He has had vomiting a couple of times, had some low-grade photophobia and headache. These were all stable. OBJECTIVE: VITAL SIGNS: T-max 99.2, pulse 64, respirations 16, blood pressure 108/66. HEENT: He is icteric. LUNGS: Clear. HEART: Regular rhythm. ABDOMEN: Tender in epigastrium. No rebound or guarding. LABORATORY DATA: White count 3.5, hemoglobin 15, MCV 99, platelet count 159. INR is 1.3 today. Bilirubin is up to 25, it was 16 on admission, it was 22.3 yesterday. AST and ALT are 1972 and 1912, they were 1661 and 2060 on admission. Alkaline phosphatase is 153. Total serum protein is 5.9. Urine drug screen, Tylenol negative. Tests for hepatitis E pending. CMV DNA negative. Syphilis nonreactive. EBV antibody and antigen, pending. Hepatitis B surface antigen positive. Hep B DNA negative. Hep C RNA negative. HSV DNA negative. HIV antibodies negative. Total IgG 1017, IgM 45, VINCENT negative, mitochondrial antibody 1.2, smooth muscle pending. INR 1.3. ASSESSMENT: A 23-year-old with hepatitis of unclear etiology. He has had persistent AST and ALT elevations in the 1000s. Negative viral serology so far, negative ultrasound. He has had a gallstone in the neck of the gallbladder, but this is a decompressed gallbladder, no ductal dilatation. He has normal Doppler studies. Liver is normal. Ophthalmology exam with no Barbara-Yoselyn rings. Hepatitis A, B, C; CMV; HSV, all negative. EBV is pending. Hepatitis E is pending. There are no overt signs of Roberto's with no evidence of hemolysis, elevated alkaline phosphatase, but this is still a concern. Ceruloplasmin is pending. At this time, he has vague symptoms of anorexia, epigastric pain, and pruritus, as he has been here a week and has prior been sick dating back to 3 weeks ago before Janneth, I think, it is likely his hepatitis E will be negative, he may ultimately need a transjugular liver biopsy. At this point in time, I think we need to transfer him to a tertiary care facility as he was not improving, and he has been here a week. I have talked to the family and they agreed with this and we will make request at [facility] in [place]. We will see if we can talk to their master tax advisor today. Job ID: [id number]
--- NOTE | 2018-06-28 15:29 | PRG ---
DATE OF SERVICE: 06/28/2018 SUBJECTIVE: The patient is seen and examined at the bedside. He is feeling somewhat better. He has less abdominal discomfort. His appetite is still poor. OBJECTIVE: VITAL SIGNS: Blood pressure is 112/69, temperature is 99.0, pulse is 62, respirations 18, O2 saturation is 94% on room air. HEENT: Head is atraumatic and normocephalic. Skin is jaundiced. Sclerae are jaundiced. Pupils are responding to light properly. Conjunctivae are pinkish. Oral mucosa is moist. NECK: Supple. LUNGS: Clear. HEART: S1 and S2 are normal. ABDOMEN: Soft. Somewhat tender in the epigastric area, where the liver is. I do not feel the edge of the liver. I do not think it is much enlarged. Bowel sounds are present. No organomegaly as far as I can see and palpate. EXTREMITIES: No clubbing, cyanosis, or edema. NEUROLOGIC: He is alert and oriented x4. There is no any sensory or motor deficit present. Cranial nerves are intact. LABORATORY DATA: Showed white count of 3.5, hemoglobin 15.0, hematocrit 46.1, platelet count 159,000. INR 1.3, PT of 16.6, APTT 36.6. Total bilirubin up to 25, direct bilirubin is 10, AST 1972, ALT 1912, alkaline phosphatase 153, total protein 5.9, albumin 3.4. IMPRESSION: Acute hepatitis of unclear etiology. The patient had workup done of the several things which are still pending, like hepatitis E, EBV, and ceruloplasmin level. The patient was here for a week, and we do not have any etiology of acute hepatitis. Decision was made about transferring to tertiary care hospital to [place], and we are going to try to arrange that today or tomorrow. Job ID: [id number]
[2018-06-28 15:53] VITALS: BP 106/65; TEMP 98.7
--- NOTE | 2018-06-29 10:18 | DIS ---
DATE OF ADMISSION: 06/22/2018 DATE OF DISCHARGE: 06/28/2018 FINAL DIAGNOSES: Acute hepatitis of unclear etiology, leukopenia secondary to #1, most likely suggestive that this could be related to some viral infection. CONSULTANTS: 1. Severiano Mallory MD. 2. Jose Manuel Kline MD. 3. Gulshan Castillo MD. HOSPITAL COURSE: The patient is a 23-year-old male, who was admitted to the hospital with complaints of abdominal pain associated with some nausea. He also noticed to be jaundiced. Also, he noticed dark urine. In the emergency room, he had lab work done, which showed white count of 3.8, hemoglobin 16.9, MCV 101, and platelet count 166. INR 1.2, PT 29.7. Sodium 139, potassium 4.5, chloride 102, CO2 of 25, BUN 7, creatinine 1.2, glucose 151, lactic acid 1.8, calcium 10, total bilirubin 16.8, AST 1700, ALT 2428, alkaline phosphatase 227, ammonia 56, serum total protein 7.1, albumin 4.3, globulin 2.8. Urine showed trace of ketones, large bilirubin, small leukocyte esterase. No white count in the urine. Toxicology was negative. HIV was negative. Serologies showed positive results for hepatitis B surface antigen. The patient got admitted to the hospital. He was placed on IV fluids, DVT prophylaxis, and was seen by Dr. Mallory for GI consultation who did full workup for acute hepatitis. IgG total came back at 1017, IgM 45. VINCENT screen was negative. Antimitochondrial antibodies 1.2, which is normal. Anti-double stranded DNA IgG antibodies less than 0.5, which is normal. IgM antibodies nonreactive. Hepatitis B surface antigen high. Hepatitis B core IgM antibodies nonreactive. Hepatitis B DNA not detected . Hepatitis C antibody nonreactive. Hepatitis C RNA nondetected. HSV-1 DNA PCR negative. HSV-2 DNA PCR negative. HIV 1 and 2 antigen and antibodies nonreactive. Syphilis IgG/IgM antibodies nonreactive. Associate Quality Engineer was consulted, who did not see any Savage Fleisher certain test, which were sent out like ceruloplasmin level like CMV and hepatitis E which was recommended by Dr. Castillo. Decision was made that he is going to be [facility] [place] as his total bilirubin was going up gradually up to 25. AST and ALT were getting higher than at the time of admission. The patient was not doing well, although he was not confused and we did not see any significant changes in INR. He did not have any obvious signs of fulminant hepatitis or liver failure. He was sent out to [facility] for further evaluation. This was arranged by Dr. Mallory and the patient was transferred to [facility] in [place]. Job ID: [id number]
[2018-06-30 17:09] LABS: Hepatitis E Virus IgG ABS Negative (Negative)
[2018-07-01 10:17] LABS: EBV Early Antigen (EA) IgG AB <9.0 U/mL (0.0-8.9); EBV VCA IgM <36.0 U/mL (0.0-35.9); Nuclear AG IgG (EBNA) AB 22.9 U/mL (0.0-17.9)
== END 2018-06-28 19:48 | disposition short-term general hospital (02) | DRG 443 ==
LOC: ERS 17:48 → ERHOLD 21:33 → SJJU 06-23 01:41
PROVIDERS: ADMIT Hospitalist; ATTEND Hospitalist
DX: B17.9 Acute viral hepatitis, unspecified (principal); R63.4 Abnormal weight loss; R63.0 Anorexia; Z68.26 Body mass index [BMI] 26.0-26.9, adult; D72.819 Decreased white blood cell count, unspecified; B34.9 Viral infection, unspecified
CPT/HCPCS: 36415; 76705; 80053; 80074; 80076; 80306; 80307; 81003; 81015; 82140; 82390; 83516; 83605; 83690; 85025; 85610; 85730; 86038; 86225; 86663; 86664; 86665; 86720; 86780; 86790; 87340; 87389; 87497; 87517; 87522; 87529; 93005; C9113; J1650; J2270; J2405; Q0162